=== PATIENT | female | born 1960 | race Two or more races ===

== ENCOUNTER 2019-02-10 14:31 | Emergency (ER) | payer OTHER ==
[~2019-02-10] VITALS: Ht 162.6 cm; Wt 83.1 kg
--- NOTE | 2019-02-10 14:42 | NUR ---
TASK RN: AFTER ARRIVAL TO ROOM AND PRIOR TO CHANGING INTO HOSPITAL GOWN, PT WANTING TO GO TO BR, AMB TO BR, GAIT STEADY.
--- NOTE | 2019-02-10 14:51 | NUR ---
PT RETURN TO ROOM, DR DIXON AT BEDSIDE TO EVAL PT
--- NOTE | 2019-02-10 14:52 | NUR ---
58 YR OLD FEMALE HERE WITH C/O CHEST PAIN THAT BEGAN YESTERDAY (WOULD COME AND GO) THAT RADIATED TO BACK AND TO UPPER ABD. WAS WALKING TODAY AND 'IT HURT SO BAD AND FELT LIKE I COULDN'T BREATH." PT PLACED ON MONITORS SR PER MONITOR. AUTO BP AND PULSE OX. PTS AT BEDSIDE.
[2019-02-10] MEDS ORDERED: SODIUM CHLORIDE FLUSH 10ML SYR IVF ONE (15:00)
--- NOTE | 2019-02-10 15:04 | NUR ---
IV STARTED IN [facility]. LABS DRAWN. PT HAD PROVIDED URINE SPECIMAN. URINE TUBES TAKEN TO LAB BY RECORDS ANALYST. PORTABLE CXR IN PLACE.
[2019-02-10 15:12] LABS: BASOPHILS # (AUTO) 0.02 x10^3/uL (0-0.1); BASOPHILS % (AUTO) 1 % (0-1); EOSINOPHILS % (AUTO) 4 % (1-7); LYMPHOCYTES % (AUTO) 35 % (22-44); MD NO; MEAN CORPUSCULAR HEMOGLOBIN 29.6 pg (27.0-34.8); MEAN CORPUSCULAR HGB CONC 32.9 g/dL (32.4-35.8); MEAN CORPUSCULAR VOLUME 90.2 fL (80-100); MEAN PLATELET VOLUME 8.6 fL (7.4-10.4); MONOCYTES # (AUTO) 0.32 x10^3/uL (0.2-0.8); MONOCYTES % (AUTO) 7 % (2-9); NEUTROPHILS # (AUTO) 2.46 x10^3/uL (1.8-6.8); NEUTROPHILS % (AUTO) 53 % (42-75); PLATELET COUNT 218 x10^3/uL (130-400); RED BLOOD COUNT 4.53 x10^6/uL (3.82-5.3); RED CELL DISTRIBUTION WIDTH 13.9 % (9.6-15.2)
--- NOTE | 2019-02-10 15:15 | NUR ---
REPORT TO ALETHEA CAICEDO AND AFSANEH RN. POC DISCUSSED WITH PT AND WITH PRIMARY RN.
[2019-02-10 15:21] LABS: ALBUMIN 3.7 g/dL (3.4-5.0); ANION GAP 4 mmol/L (5-15); CALCIUM 9.1 mg/dL (8.5-10.1); CHLORIDE 108 mmol/L (98-107)
[2019-02-10 15:27] LABS: ALANINE AMINOTRANSFERASE 21 U/L (12-78); ALKALINE PHOSPHATASE 73 U/L (45-117); BILIRUBIN,TOTAL 0.4 mg/dL (0.2-1.0); CREATININE 0.76 mg/dL (0.55-1.02); TOTAL PROTEIN 7.6 g/dL (6.4-8.2); TROPONIN I < 0.015 ng/mL (0.000-0.045)
[2019-02-10] MEDS ORDERED: OMNIPAQUE 350 MG/ML, 100ML BOTTLE ONE (16:38)
[2019-02-10 17:02] VITALS: BP 147/97
--- NOTE | 2019-02-10 17:03 | NUR ---
VS UPDATED AND WNL. DR. DIXON AT BEDSIDE.
[2019-02-10] MEDS ORDERED: MAALOX/HYOSCYAMINE/LIDOCAINE 45 ML BTL ONE (17:06)
[2019-02-10] MEDS ORDERED: MAALOX/HYOSCYAMINE/LIDOCAINE 45 ML BTL PO ONE (17:30)
--- NOTE | 2019-02-10 18:32 | NUR ---
Patient given discharge instructions and they have confirmed that they understand the instructions. Patient ambulatory with steady gait.
== END 2019-02-10 18:33 | disposition home or self-care (01) ==
LOC: ED 15:22
DX: R07.2 Precordial pain (principal); E78.5 Hyperlipidemia, unspecified
CPT/HCPCS: 36415; 71045; 71275; 80053; 83690; 84484; 85025; 93005; 99284; Q9967

== ENCOUNTER → 2019-04-16 | Outpatient (CLI) | payer OTHER | END | disposition home or self-care (01) | LOC: CFH 14:55 | PROVIDERS: ATTEND Internal Medicine Cardiovascular Disease | DX: I36.1 Nonrheumatic tricuspid (valve) insufficiency (principal); E78.00 Pure hypercholesterolemia, unspecified | CPT/HCPCS: 93306 ==

== ENCOUNTER → 2019-05-24 | Outpatient (CLI) | payer OTHER | END | disposition home or self-care (01) | LOC: CFH 07:59 | PROVIDERS: ATTEND Internal Medicine Cardiovascular Disease | DX: I25.9 Chronic ischemic heart disease, unspecified (principal) | CPT/HCPCS: 78452; 93017; A9502 ==

== ENCOUNTER 2019-06-05 09:33 | Day surgery (SDC) | payer OTHER ==
[~2019-06-05] VITALS: Ht 162.6 cm; Wt 81.8 kg
[2019-06-05] MEDS ORDERED: SODIUM CHLORIDE 0.9% 1,000 ML IV SCH (10:00)
[2019-06-05] MEDS ORDERED: ASPIRIN 325 MG TABLET EC PO ONE (10:00)
[2019-06-05] MEDS ORDERED: ASPIRIN 325 MG TABLET EC ONE (10:25)
[2019-06-05] MEDS ORDERED: VERAPAMIL 2.5 MG/ML, 2ML ONE (10:36)
[2019-06-05] MEDS ORDERED: MIDAZOLAM 1 MG/ML, 2ML ONE ×2 (10:36→11:29)
[2019-06-05] MEDS ORDERED: FENTANYL PF 100 MCG/2ML ONE (10:36)
[2019-06-05] MEDS ORDERED: HEPARIN 1,000 UNITS/ML, 10ML ONE (10:37)
[2019-06-05] MEDS ORDERED: LIDOCAINE 1%, 20ML ONE (10:37)
[2019-06-05 10:50] VITALS: BP 136/72
[2019-06-05 11:00] LABS: ALANINE AMINOTRANSFERASE 25 U/L (12-78); ALBUMIN 3.8 g/dL (3.4-5.0); ANION GAP 5 mmol/L (5-15); CHLORIDE 109 mmol/L (98-107)
[2019-06-05] MEDS ORDERED: PLEASE ENTER HEIGHT AND WEIGHT MC SCH (11:00)
[2019-06-05 11:02] LABS: ALKALINE PHOSPHATASE 80 U/L (45-117); BILIRUBIN,TOTAL 0.5 mg/dL (0.2-1.0); TOTAL PROTEIN 7.8 g/dL (6.4-8.2)
== END 2019-06-05 15:24 | disposition home or self-care (01) ==
LOC: CACL 09:33
PROVIDERS: ATTEND Internal Medicine Cardiovascular Disease
DX: R94.39 Abnormal result of other cardiovascular function study (principal); I25.119 Atherosclerotic heart disease of native coronary artery with unspecified angina pectoris; I25.83 Coronary atherosclerosis due to lipid rich plaque; I10 Essential (primary) hypertension; E78.00 Pure hypercholesterolemia, unspecified; E66.9 Obesity, unspecified; Z68.31 Body mass index [BMI] 31.0-31.9, adult
CPT/HCPCS: 36415; 80053; 93458; 99156; 99157; C1760; C1769; C1894; J1644; J2250; J3010; Q9967